=== PATIENT | male | born 1995 | race Caucasian/White ===

== ENCOUNTER 2016-08-22 22:42 | Inpatient (IN) ==
[2016-08-22] MEDS ORDERED: ONDANSETRON 4 MG/2 ML VIAL IV STA (23:28)
[2016-08-22] MEDS ORDERED: SODIUM CHLORIDE 0.9% 1,000 ML IV STA (23:28)
[2016-08-22] MEDS ORDERED: fentaNYL 100 MCG/2 ML VIAL IV STA (23:29)
[2016-08-22 23:40] LABS: Basophils % 0.3 % (0.0-0.8); Eosinophils % 0.3 % (0.00-10.9); Hematocrit 39.5 VOL% (42.0-52.0); Hemoglobin 14.2 GM/DL (14.0-18.0); Immature Granulocytes % 0.3 %; Immature Granulocytes Absolute 0.05 #; Mean Corpuscular HGB Conc 35.9 GM/DL (32-36); Mean Corpuscular Hemoglobin 31 PG (27-34); Mean Corpuscular Volume 85.1 FL (87-102); Mean Platelet Volume 10.6 FL (9.6-12.0); Monocytes # 1.3 10*3/uL (0.11-0.8); Monocytes % 8.4 % (1.7-12.7); Neutrophils # 8.8 10*3/uL (1.4-7.4); Neutrophils % 57.7 % (38.7-73.9); Platelet Count 329 T/CUMM (130-400); Red Blood Count 4.64 MC/CUMM (3.8-5.5); Red Cell Distribution Width 12.9 % (9.3-17.3); White Blood Count 15.2 T/CUMM (4-12)
[2016-08-22] MEDS ORDERED: ONDANSETRON 4 MG/2 ML VIAL ONE (23:43)
[2016-08-22] MEDS ORDERED: fentaNYL 100 MCG/2 ML VIAL ONE (23:44)
[2016-08-22 23:49] LABS: Calcium 8.7 MG/DL (8.5-10.1); Osmolality,Calculated 275.5 MOS/KG (273-304); Potassium 3.1 MMOL/L (3.5-5.1)
[2016-08-23] MEDS ORDERED: MAGNESIUM HYDROXIDE SUSP 30 ML UDCUP PO PRN ×2 (00:05→11:08)
[2016-08-23] MEDS ORDERED: ONDANSETRON 4 MG/2 ML VIAL IV PRN ×2 (00:05→11:32)
--- NOTE | 2016-08-23 00:05 | Emergency Department Note ---
Talisha Saleh Rolonda, am scribing for, and in the presence of, David Delgado M.D. 22:57. Danny Saleh Howard T, M.D., personally performed the services described in this documentation, ascribed by Erich Woodall in my presence, and it is both accurate and complete . Arrival - Arrival Chief Complaint: Extremity Injury Stated Complaint: broken ankle ED Nursing Triage Note: C/C right ankle deformity. Fell off porch Mode of Arrival: Wheelchair Limitations: No Limitations Source: Patient, Old Records Reviewed, RN Notes Reviewed - History of Present Illness HPI Narrative: Pt is a 21 y/o who arrived to the ED via wheelchair for further evaluation of a broken ankle with an onset of minutes ago. Pt appeared to be intoxicated and stated that he drank "a little bit over the limit". Nurses' note states that pt fell off the porch at a restaurant resulting in his ankle being broken. No other history available. Onset (ago): minute(s) Consistency: constant Severity: severe Severity scale (1-10): 8 Allergies/Adverse Reactions: Allergies Allergy/AdvReac Type Severity Reaction Status Date / Time No Known Allergies Allergy Verified 08/22/16 22:49 Review of System - Review of System 12 point system: reviewed and no additional remarkable complaints except as stated Medical,Surgical,& Family Hx - Surgical History HEENT Surgeries: Surgical HX of: Tonsilectomy & Adenoidectomy - Family History Family History: Reports;: Family Cancer - Social History Smoking Status: Current every day smoker Frequency of Alcohol Use: Frequently Type of Drug Use: None Exam Vital Signs: Vital Signs Temperature 97 F L 08/22/16 22:45 Pulse Rate 96 H 08/22/16 22:45 Respiratory Rate 16 08/22/16 22:45 Blood Pressure 127/57 08/22/16 22:45 O2 Sat by Pulse Oximetry 98 08/22/16 22:45 - General General appearance: alert, in no apparent distress - Head Head exam: Present: atraumatic, normocephalic - Eye Eye exam: Present: PERRL, EOMI - ENT ENT exam: Present: mucous membranes moist. Absent: mucous membranes dry - Neck Neck exam: Present: full ROM. Absent: tenderness - Chest Chest inspection: Present: symmetric chest wall rise. Absent: tenderness - Respiratory Respiratory exam: Present: normal lung sounds bilaterally. Absent: wheezes - Cardiovascular Cardiovascular exam: Present: regular rate, normal rhythm, normal heart sounds. Absent: bradycardia - Abdominal Exam Abdominal exam: Present: soft, normal bowel sounds. Absent: tenderness - Extremities Exam Extremities exam: Absent: normal inspection (obvious deformity of right ankle) - Back Exam Back exam: Present: full ROM. Absent: tenderness - Neurological Exam Neurological exam: Present: alert, CN II-XII intact - Psychiatric Psychiatric exam: Present: normal affect, normal mood - Skin Skin exam: Present: warm, dry, intact, normal color. Absent: rash Course Course Narrative: Medical decision making: Patient tolerated reduction without complication, postreduction films showed better placement and pulses still strong and intact distally. Discussed with Dr. Durbin on-call orthopedic who recommended n.p.o. after midnight admitted to him with probable OR in the morning. Procedures - Orthopedic Joint Reduction Joint #1 Consent Obtained: verbal consent, written consent Time Out Performed: Yes Side: right Joint Reduction Location: ankle Technique used: traction/counter-traction Post-reduction neuro exam: intact Post-reduction vascular: intact Post Reduction X-Ray Obtained: Yes (reduced) Post Reduction X-Ray Results: reduced Splint Applied: Yes Patient Tolerated Procedure: well, no complications Results - Labs CBC & BMP: 08/22/16 22:56 08/22/16 22:56 Lab Results: I have reviewed the patients labs Labs: Laboratory Tests 08/22/16 08/22/16 22:56 22:56 WBC 15.2 H RBC 4.64 Hgb 14.2 Hct 39.5 L MCV 85.1 L Plt Count 329 Neut # (Auto) 8.8 H Lymph # (Auto) 5.0 H [place] # (Auto) 1.3 H Sodium 139 Potassium 3.1 L Chloride 105 Carbon Dioxide 20 L Anion Gap 17.1 H BUN 11 GFR Calculation 89 - Diagnostic Findings Procedure: X-ray: image reviewed by me (Right ankle, initial x-rays showed dislocated and bimalleolar fractures, postreduction films showed bimalleolar fracture with successful reduction) Disposition Clinical Impression: Closed fracture dislocation of right ankle Case discussed with: patient Disposition: Still a Patient Condition: Stable Time of Disposition: 00:04
[2016-08-23] MEDS: LACTATED RINGERS 1,000 ML IV SCH ×2 (01:10→12:30)
[2016-08-23] MEDS: MORPHINE 2 MG/1 ML SYRINGE IV PRN ×2 (03:09→07:36)
--- NOTE | 2016-08-23 07:04 | Orthopedic History & Physical ---
History of Present Illness Chief complaint: Trimalleolar fracture dislocation right ankle History of present illness: Mr. Serna is a 21 year old male See dictated reports Home Medications Medication Instructions Recorded Confirmed Type No Known Home Medications [No 08/23/16 08/23/16 History Known Home Medications] Allergies Allergy/AdvReac Type Severity Reaction Status Date / Time No Known Allergies Allergy Verified 08/22/16 22:49 Medical,Surgical,& Family Hx - Surgical History HEENT Surgeries: Surgical HX of: Tonsilectomy & Adenoidectomy - Family History Family History: Reports;: Family Cancer - Social History Smoking Status: Current every day smoker Frequency of Alcohol Use: Frequently Type of Drug Use: None Exam - Constitutional Vitals: Period Temp Pulse Resp BP Sys/Gonzalez Pulse Ox Last 24 Hr 97 F-98.8 F 73-96 16-20 114-127/57-62 96-98 Results - Labs CBC & BMP: 08/22/16 22:56 08/22/16 22:56
--- NOTE | 2016-08-23 07:48 | XRay Report ---
XR ankle 3V RT Indication: Injury with deformity. Right ankle 3 views: Comminuted fractures of the medial and lateral malleoli are present. The talus is dislocated laterally with respect to the tibia. No other fractures are seen. Impression: Fracture-dislocation of the tibiotalar and fibulotalar joints. PROCEDURE INTERPRETED AT [facility] DEPARTMENT OF RADIOLOGY Final Report Signed by: Mandeep Albarran M.D.
--- NOTE | 2016-08-23 07:49 | XRay Report ---
XR ankle 3V RT Indication: Postreduction. Right ankle 3 views: Bimalleolar fracture-dislocation of the ankle has been reduced into near-anatomic alignment. Fiberglas casting material is in the field of view. Impression: Anatomic alignment following reduction. PROCEDURE INTERPRETED AT [facility] DEPARTMENT OF RADIOLOGY Final Report Signed by: Mandeep Albarran M.D.
[2016-08-23] MEDS ORDERED: ceFAZolin 2,000 MG in PREMIX 1 EACH IV ONE (09:00)
--- NOTE | 2016-08-23 09:21 | History and Physical Report ---
DATE OF ADMISSION: 08/23/2016 A 21-year-old white male admitted last night after he fell off, poorly intoxicated, when he injured h is right ankle. No other injuries or complaints. He is evaluated in the [facility] ludin gnosed with a closed fracture dislocation of the right ankle. He underwent manipulation and splintin g and admission for definitive orthopedic treatment. He has no other injuries or complaints. PAST MEDICAL HISTORY: None. MEDICATIONS: None. ALLERGIES: NONE. PAST SURGICAL HISTORY: Tonsillectomy. PHYSICAL EXAMINATION GENERAL: Well-developed, well-nourished male, he is awake, alert and responds to questions appropria tely. HEENT: Within normal limits. NECK: Nontender. CHEST: Clear. HEART: Regular rate and rhythm. ABDOMEN: Soft, nontender. /RECTAL: Deferred. EXTREMITIES: No pain about either upper extremity or about the left lower on the right side well-pad ded posterior splints in place. He can wiggle his toes. Subjective sensibility is intact. Capillar y refill is brisk. There is no pain more proximal at the right knee, arms or hip. Radiographs confirmed a fracture, dislocation of right ankle, trimalleolar. IMPRESSION: TRIMALLEOLAR FRACTURE DISLOCATION, RIGHT ANKLE. PLAN: I discussed with he and his family present, the diagnosis and treatment recommendations includ ing the need for ORIF. We also discussed the postoperative course and its expectations as well. All questions were answered. He is currently n.p.o. will be taken to OR today for ORIF of right ankle.
[2016-08-23] MEDS ORDERED: PROMETHAZINE 25 MG/1 ML VIAL IM PRN (11:08)
[2016-08-23] MEDS ORDERED: TEMAZEPAM 15 MG CAPSULE PO PRN (11:11)
[2016-08-23] MEDS ORDERED: MORPHINE 2 MG/1 ML SYRINGE IV PRN ×2 (11:12→11:22)
--- NOTE | 2016-08-23 11:26 | XRay Report ---
XR ankle 3V RT Indication: Right ankle ORIF. Fluoroscopy right ankle: Fluoroscopy time 7 seconds, 3 images. Bimalleolar fracture of the right ankle has been secured with plate and screw fixation of the distal fibula and cancellous screw fixation of the medial malleolus. Small nondisplaced fracture of the posterior malleolus identified on the lateral view. This was not identifiable on the initial preoperative studies. Alignment is anatomic. Impression: Anatomic alignment. PROCEDURE INTERPRETED AT [facility] DEPARTMENT OF RADIOLOGY Final Report Signed by: Mandeep Albarran M.D.
[2016-08-23] MEDS ORDERED: HYDROmorphone 2 MG/1 ML VIAL IV PRN (11:32)
[2016-08-23] MEDS ORDERED: KETOROLAC 30 MG/1 ML VIAL IV ONE (11:33)
[2016-08-23] MEDS ORDERED: PROPOFOL 200 MG/20 ML VIAL IV ONE (11:34)
[2016-08-23] MEDS ORDERED: SODIUM CHLORIDE 0.9% 200 ML IV ONE (11:35)
[2016-08-23] MEDS ORDERED: MIDAZOLAM 2 MG/2 ML VIAL ONE (11:35)
[2016-08-23] MEDS ORDERED: ACETAMINOPHEN 1,000 MG/100 ML VIAL IV ONE (11:35)
[2016-08-23] MEDS ORDERED: KETOROLAC 30 MG/1 ML VIAL ONE ×2 (11:35→11:37)
--- NOTE | 2016-08-23 11:45 | Anesthesia Post-Op ---
Anesthesia Post OP - Post Ansesthetic Evaluation Patient seen in post op: Yes Resp: within normal limits CV: within normal limits Mental: within normal limits Temp: within normal limits [id number]-[id number]-Frghjvozd: within normal limits Nausea and Vomiting: within normal limits Pain: within normal limits
[2016-08-23] MEDS ORDERED: HYDROmorphone 2 MG/1 ML VIAL ONE (11:49)
[2016-08-23] MEDS ORDERED: ONDANSETRON 4 MG/2 ML VIAL ONE (11:50)
[2016-08-23] MEDS ORDERED: LACTATED RINGERS 1,000 ML IV SCH (12:00)
--- NOTE | 2016-08-23 15:09 | Operative Note ---
DATE: 08/23/2016 PREOPERATIVE DIAGNOSIS: TRIMALLEOLAR FRACTURE DISLOCATION, RIGHT ANKLE. POSTOPERATIVE DIAGNOSIS: TRIMALLEOLAR FRACTURE DISLOCATION, RIGHT ANKLE. OPERATIVE PROCEDURE: Open reduction and internal fixation, right ankle, trimalleolar. SURGEON: Josh Durbin Jr., MD. ANESTHESIA: Spinal. INDICATION: A 21-year-old white male injured last night, reportedly intoxicated when he fell off a p orch sustaining a fracture dislocation in right ankle. The injury was closed. He was admitted after gentle manipulation and splinting. He has currently been made n.p.o. for ORIF. I have discussed wi th he and his family preoperatively the diagnosis and treatment recommendations including need for op en reduction and internal fixation. OPERATIVE PROCEDURE: The patient was brought to the operating room and under spinal anesthetic posit ioned on the operative table in supine position. He received Ancef preoperatively. The limb was pre pped and draped in the usual sterile manner and then elevated, exsanguinated, and tourniquet placed a t 300 mmHg. A longitudinal incision was made over the lateral ankle. Sharp dissection was carried o ut in the skin and subcutaneous tissue. Fracture hematoma evacuated in the distal fibula and it was reduced using a clamp. An interfragmentary screw was placed first, front to back, securing the reduc tion, then a 6-hole plate was contoured to fit the lateral fibula and act as a neutralization plate. A small incision was then made over the medial malleolus to allow direct exposure to the medial mall eolar fracture. Hematoma was evacuated, saphenous vein protected, fracture was reduced and secured w ith two cannulated 4.0 Synthes screws. Fluoroscopy was brought in to confirm satisfactory ORIF. All wounds were then irrigated and closed in standard fashion using 0-Vicryl, 2-0 Vicryl, and samir. Sterile dressing and posterior splint was applied. Tourniquet was deflated at 39 minutes and he was taken to recovery room in stable condition.
[2016-08-23] MEDS: KETOROLAC 15 MG/1 ML VIAL IV SCH (17:27)
[2016-08-24] MEDS: KETOROLAC 15 MG/1 ML VIAL IV SCH ×2 (00:41→05:15)
[2016-08-24 07:55] VITALS: BP 115/79
--- NOTE | 2016-08-24 09:02 | Orthopedic Progress Note ---
Orthopedics - Subjective Interval history: Comfortable p.o. meds working well after physical therapy if doing well will discharge home instructed to Exam - Constitutional Vitals: Period Temp Pulse Resp BP Sys/Gonzalez Pulse Ox Last 24 Hr 97.4 F-98.9 F 51-89 14-20 107-135/53-79 96-100 Results - Labs CBC & BMP: 08/22/16 22:56 08/22/16 22:56
--- NOTE | 2016-08-24 09:05 | Discharge Summary ---
Hospital Course - Hospital Course Hospital Course: Admitted following closed fracture dislocation right ankle underwent ORIF discharged home Diagnosis - Discharge Diagnosis (1) Trimalleolar fracture of right ankle Status: Acute Discharge Plan - Discharge Data Disposition: Disch To Home/Self Care Condition at Discharge: Stable Discharge Diet: advance to your usual diet Activity: as per physical therapy Hygiene: may shower, keep area(s) dry Weight Bearing at Discharge: non-weight bearing (On right) Driving: not until seen by doctor - Discharge Medications New HYDROcodone/ACETAMIN 7.5-325 [[place] 7.5-325] 2 tablet PO Q4H PRN #25 tablet PRN Reason: Pain Severe (8-10) - Follow Up or Referral - Forms/Instructions Additional Discharge Instructions: Discharge home after PT discharge medications Narco 7.5 #25 no refills.as tolerated routine splint care keep elevated clean dry and intact. Nonweightbearing with crutches on right follow- up in approximately 1 week September 01 call tomorrow for appointment Exam - Constitutional Vitals: Period Temp Pulse Resp BP Sys/Gonzalez Pulse Ox Last 24 Hr 97.4 F-98.9 F 51-89 14-20 107-135/53-79 96-100 DS: Provider Date of admission: 08/23/16 00:05 Primary care physician: . No PCP Attending physician on admission: Josh Durbin Jr., MD Consults: 08/23/16 00:05 Consult to Anesthesiology [CONS] Routine Consulting Provider: Reason for Anesthesiology: Pre-op Clearance 08/23/16 11:08 Consult to Physical Therapy [CONS] Routine Reason for Physical Therapy: Evaluate and Treat Consult Comment: Crutch training nonweightbearing on right Discharging clinician: Josh Durbin Jr., MD
== END 2016-08-24 11:28 | disposition home or self-care (01) | DRG 494 ==
LOC: N.ED 22:42 → N.EDINP 08-23 00:05 → N.3E 08-23 00:18
PROVIDERS: ADMIT Orthopaedic Surgery; ATTEND Orthopaedic Surgery